=== PATIENT | male | born 1990 | race Caucasian/White ===

== ENCOUNTER 2022-10-16 13:19 | Outpatient (CLI) | payer OTHER, SELFPAY ==
--- NOTE | 2022-10-16 13:37 | MR_ITS ---
WS: [id number] MRI RIGHT KNEE HISTORY: BOBO TEST COMPARISON: 09/12/2022 Anterior cruciate ligament: Increased T2 signal in the central ligament but there is no full-thicknes s tear. Most consistent with mild intrasubstance degeneration. Posterior cruciate ligament: Intact. Medial collateral ligament: Intact. Posterior lateral corner structures: Intact. Medial menisci: Intact. Normal signal, size and shape. Lateral meniscus: Intact. Normal signal, size and shape. Extensor mechanism: Distal quadriceps tendon and patellar tendons are intact. Fluid and soft tissue: No joint effusion. No Amaya's cyst. Osseous and articular structures: Patellofemoral compartment: Mild superficial chondromalacia medial patellar facet. No marrow edema. Medial compartment: Negative. Lateral compartment: Negative. Lobulated cystic mass posterior to the medial femoral condyle closely associated with the medial rick rocnemius tendon. Mass measures 1.4 x 3.0 cm. MR/MR knee RT wo con* [id number] IMPRESSION: 1. Mild intrasubstance degeneration involving the ACL. No full-thickness tear. 2. Lobulated cystic mass associated with the gastrocnemius tendon. Consistent with the gastrocnemius tendon ganglion. 3. No fractures or marrow edema. 4. No meniscal tear identified.
== END 2022-10-16 13:20 | disposition home or self-care (01) ==
PROVIDERS: Visit Provider Nurse Practitioner
DX: R29.898 Other symptoms and signs involving the musculoskeletal system (principal); M67.461 Ganglion, right knee
CPT/HCPCS: 73721